=== PATIENT | male | born 1985 | race Caucasian/White ===

== ENCOUNTER 2022-06-07 16:56 | Emergency (ER) | payer OTHER, SELFPAY ==
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
--- NOTE | ~2022-06-07 | XR_ITS ---
EXAMINATION: XR SHOULDER, LEFT CLINICAL INFORMATION: Dislocated left shoulder COMPARISON: Same day earlier TECHNIQUE: AP external rotation, Grashey, scapular Y, and axillary views of the left shoulder. FINDINGS: Seen previously anterior-inferior dislocation of the left shoulder has been reduced. There is no obvious fractures. Soft tissues are unremarkable XR/XR shoulder LT min 2V IMPRESSION: Reduced dislocation of left shoulder
[2022-06-07 18:27] VITALS: BP 124/61; PULSE 67; RESP 18; TEMP 36.6; O2SAT 98; BMI 23.6
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
[2022-06-07] MEDS: HYDROmorphone HCl 1 MG/ML SYRINGE IVPUSH (19:11)
== END 2022-06-07 20:37 | disposition home or self-care (01) ==
PROVIDERS: Emergency Provider Emergency Medicine Emergency Medical Services
DX: S43.005A Unspecified dislocation of left shoulder joint, initial encounter (principal); M25.512 Pain in left shoulder; V29.91XA Electric (assisted) bicycle rider (driver) (passenger) injured in unspecified traffic accident, initial encounter; Y93.9 Activity, unspecified; Y92.410 Unspecified street and highway as the place of occurrence of the external cause; Y99.9 Unspecified external cause status; Z79.899 Other long term (current) drug therapy
CPT/HCPCS: 23650; 73030; 96374; 99283; 99284; J1170